=== PATIENT | male | born 1990 | race American Indian/Alaskan Native ===

== ENCOUNTER 2018-09-17 11:45 | Emergency (ER) | payer OTHER ==
[2018-09-17] MEDS ORDERED: FUL-GLO OP ONE ×3 (12:05→14:37)
[2018-09-17] MEDS ORDERED: TETRACAINE 0.5% OU ONE (12:05)
--- NOTE | 2018-09-17 12:05 | Event Note ---
ED Screening Note ED Screening Note: 1 w hx eye pain vision changes- central spots globe intact This initial assessment/diagnostic orders/clinical plan/treatment(s) is/are subject to change based on patients health status, clinical progression and re- assessment by fellow clinical providers in the ED. Further treatment and workup at subsequent clinical providers discretion. Patient/guardian urged not to elope from the ED as their condition may be serious if not clinically assessed and managed. Initial orders include: eye exam ACC
[2018-09-17 12:06] VITALS: BP 131/80
[2018-09-17] MEDS ORDERED: TOBREX OU ONE (13:06)
[2018-09-17] MEDS ORDERED: TETRACAINE 0.5% ONE (14:15)
--- NOTE | 2018-09-17 15:17 | Emergency Department Report ---
ED Eye Problem HPI - General Chief complaint: Eye Problems Stated complaint: R EYE PAIN/REDNESS Time Seen by Provider: 09/17/18 12:04 Source: patient Mode of arrival: Ambulatory Limitations: No Limitations - History of Present Illness MD chief complaint: eye pain, eye redness -: week(s) (2) Onset Description: unknown Location: right eye If Injury: none Eye Symptoms: burning, redness, pain, itching, photophobia Severity: moderate If Pain, Quality: burning, aching Consistency: intermittent Associated Symptoms: headache. denies: fever Treatments Prior to Arrival: irrigated eye, OTC eye drops - Related Data Previous Rx's Medication Instructions Recorded Last Taken Type Naproxen [Naprosyn] 500 mg PO BID #20 tablet 09/17/18 Unknown Rx traMADol [Ultram] 50 mg PO Q6HR PRN #7 tablet 09/17/18 Unknown Rx Allergies Allergy/AdvReac Type Severity Reaction Status Date / Time No Known Allergies Allergy Unverified 09/17/18 11:49 ED Review of Systems ROS: Stated complaint: R EYE PAIN/REDNESS Other details as noted in HPI Comment: All other systems reviewed and negative Constitutional: denies: chills, fever Eyes: eye pain, eye discharge (clear) Neurological: headache ED Past Medical Hx - Past Medical History Previous Medical History?: No - Surgical History Past Surgical History?: No - Social History Smoking Status: Current Every Day Smoker Substance Use Type: Marijuana - Medications Home Medications: Home Medications Medication Instructions Recorded Confirmed Last Taken Type Naproxen [Naprosyn] 500 mg PO BID #20 tablet 09/17/18 Unknown Rx traMADol [Ultram] 50 mg PO Q6HR PRN #7 tablet 09/17/18 Unknown Rx ED Physical Exam - General Limitations: No Limitations General appearance: alert, in no apparent distress - Head Head exam: Present: atraumatic, normocephalic - Eye Eye exam: Present: PERRL, EOMI, conjunctival injection, other (Wood's lamp exam negative). Absent: periorbital swelling Pupils: Present: normal accommodation - ENT ENT exam: Present: mucous membranes moist - Neck Neck exam: Present: normal inspection - Respiratory Respiratory exam: Present: normal lung sounds bilaterally. Absent: respiratory distress - Cardiovascular Cardiovascular Exam: Present: regular rate, normal rhythm - GI/Abdominal GI/Abdominal exam: Absent: distended - Extremities Exam Extremities exam: Present: normal inspection - Neurological Exam Neurological exam: Present: alert, oriented X3 - Psychiatric Psychiatric exam: Present: normal affect, normal mood - Skin Skin exam: Present: warm, dry, intact, normal color ED Course Vital Signs 09/17/18 12:05 Temperature 98.2 F Pulse Rate 66 Respiratory 16 Rate Blood Pressure 131/80 O2 Sat by Pulse 100 Oximetry ED Medical Decision Making - Differential Diagnosis conjunctivitis, iritis, foreign body, corneal abrasion Critical care attestation.: If time is entered above; I have spent that time in minutes in the direct care of this critically ill patient, excluding procedure time. ED Disposition Clinical Impression: Conjunctivitis Disposition: - TO HOME OR SELFCARE Is pt being admited?: No Condition: Stable Instructions: Conjunctivitis (ED) Additional Instructions: Use tobramycin drops, one drop in left eye every 4 hrs. Prescriptions: Naproxen [Naprosyn] 500 mg PO BID #20 tablet traMADol [Ultram] 50 mg PO Q6HR PRN #7 tablet PRN Reason: Pain Referrals: KEN CARBONE MD [Primary Care Provider] - 3-5 Days JESSICA SCHULTZ MD [Staff Physician] - 3-5 Days Time of Disposition: 15:17
== END 2018-09-17 15:39 | disposition home or self-care (01) ==
LOC: ED 11:45
DX: H10.9 Unspecified conjunctivitis (principal); F17.200 Nicotine dependence, unspecified, uncomplicated; F12.10 Cannabis abuse, uncomplicated; Z79.899 Other long term (current) drug therapy